=== PATIENT | female | born 1985 | race Caucasian/White ===

== ENCOUNTER 2017-03-12 20:33 | Emergency (ER) | payer MEDICAID ==
[~2017-03-12] VITALS: Ht 167.6 cm; Wt 88.3 kg
[~2017-03-12 20:33] MED LIST: DOCU-30 PO; HYDR-3240 PO; INSU500V SC; METF500T4 PO; NPH,100V SC; PREN1TAB60 PO; PRENATAL VITAMIN; [UNRECOGNIZED DRUG - OTHER] PO
[2017-03-12 20:41] VITALS: BP 121/78
[2017-03-12] MEDS ORDERED: PLEASE ENTER HEIGHT AND WEIGHT MC SCH (21:00)
[2017-03-12] MEDS ORDERED: SODIUM CHLORIDE FLUSH 10ML SYR IVF ONE (21:00)
[2017-03-12] MEDS ORDERED: SODIUM CHLORIDE 0.9% 1,000ML IVBOLUS ONE (21:00)
[2017-03-12 21:13] LABS: HCG UR OBC PASS
[2017-03-12 21:14] LABS: ASPARTATE AMINO TRANSFERASE 17 U/L (15-37); BLOOD UREA NITROGEN 25 mg/dL (7-18)
[2017-03-12 21:33] LABS: DAU SCREEN DISCLAIMER
[2017-03-12] MEDS ORDERED: ACETAMINOPHEN 325 MG TABLET PO ONE (22:00)
[2017-03-12] MEDS ORDERED: ACETAMINOPHEN 325 MG TABLET ONE (22:12)
[2017-03-12] MEDS ORDERED: METOCLOPRAMIDE 5 MG/ML, 2ML IVPush ONE (22:30)
[2017-03-12] MEDS ORDERED: ONDANSETRON ODT 4 MG ONE (22:40)
== END 2017-03-12 22:59 | disposition home or self-care (01) ==
LOC: ED 22:53
DX: G89.29 Other chronic pain (principal); M54.5 Low back pain; M54.6 Pain in thoracic spine; E87.6 Hypokalemia; E11.65 Type 2 diabetes mellitus with hyperglycemia; R82.2 Biliuria; Z90.49 Acquired absence of other specified parts of digestive tract
CPT/HCPCS: 36415; 80053; 80307; 81001; 81025; 83605; 83690; 85025; 96360; 99284; J7030